=== PATIENT | female | born 1950 | race Caucasian/White ===

== ENCOUNTER 2020-10-12 09:28 | Outpatient (CLI) | payer OTHER, MEDICARE, SELFPAY ==
[2020-10-12 10:25] LABS: Basophils # 0.1 10^3/uL (0.0-0.1); Basophils % 0.9 %; Eosinophils # 0.3 10^3/uL (0.0-0.8); Eosinophils % 5.5 %; Hematocrit 41.1 % (37.0-47.0); Hemoglobin 12.9 g/dL (11.5-15.3); Lymphocytes # 1.2 10^3/uL (0.8-4.8); Lymphocytes % 20.9 %; Mean Corpuscular HGB Conc 31.4 g/dL (30.0-36.0); Mean Corpuscular Hemoglobin 28.4 pg (28.0-34.0); Mean Corpuscular Volume 90.5 fL (81-99); Mean Platelet Volume 11.3 fL (7.4-10.4); Monocytes # 0.5 10^3/uL (0.2-0.9); Monocytes % 8.2 %; Neutrophils # 3.58 10^3/uL (1.8-7.7); Neutrophils % 64.1 %; Nucleated Red Blood Cells % 0 %; Platelet Count 184 10^3/cmm (130-400); Red Blood Count 4.54 10^6/uL (4.1-5.3); Red Cell Distribution Width 14.2 % (12.1-15.1); White Blood Count 5.6 10^3/uL (4.0-10.0)
[2020-10-12 11:04] LABS: Alanine Aminotransferase 9 U/L (0-33); Albumin Level 3.8 g/dL (3.5-5.2); Alkaline Phosphatase 64 IU/L (35-105); Anion Gap 15.5 (5-19); Aspartate Amino Transferase 13 U/L (0-32); Blood Urea Nitrogen 16 mg/dL (8-23); Carbon Dioxide 23 mmol/L (22-29); Chloride 106 mmol/L (98-107); Chol HDL Ratio 3.17 mg/dL (0.0-4.40); Cholesterol 130 mg/dL (0-200); Globulin 2.9 g/dL (1.3-4.6); Glomerular Filtration Rate 99.4 mL/min (90-130); Glucose 187 mg/dL (65-115); HDL Cholesterol 41 mg/dL (60-100); LDL Cholesterol Calculated 46 mg/dL (50-129); Osmolality Calculated 296 mOsm/kg (285-295); Potassium 4.5 mmol/L (3.5-5.1); Sodium 140 mmol/L (136-145); Thyroid Stimulating Hormone 1.52 uIU/mL (0.27-4.20); Total Bilirubin 0.6 mg/dL (0.15-1.2); Total Protein 6.7 g/dL (6.6-8.7); Triglycerides 214 mg/dL (0-150); VLDL Cholestrol Calculation 43 mg/dL (0-30)
[2020-10-12 11:09] LABS: Estmated Average Glucose 146; Hemoglobin A1C 6.7 % (4.0-6.0)
== END 2020-10-12 09:29 | disposition home or self-care (01) ==
PROVIDERS: PCP Family Medicine; Visit Provider Family Medicine
DX: E11.9 Type 2 diabetes mellitus without complications (principal)
CPT/HCPCS: 36415; 80053; 80061; 83036; 84443; 85025

== ENCOUNTER 2021-09-06 09:01 | Outpatient (CLI) | payer OTHER, MEDICARE, SELFPAY ==
[2021-09-06 09:44] LABS: Basophils # 0.1 10^3/uL (0.0-0.1); Eosinophils # 0.4 10^3/uL (0.0-0.8); Eosinophils % 5.6 %; Hematocrit 42.8 % (37.0-47.0); Hemoglobin 13.6 g/dL (11.5-15.3); Lymphocytes # 1.5 10^3/uL (0.8-4.8); Lymphocytes % 23.6 %; Mean Corpuscular HGB Conc 31.8 g/dL (30.0-36.0); Mean Corpuscular Hemoglobin 28.6 pg (28.0-34.0); Mean Corpuscular Volume 90.1 fl (81-99); Mean Platelet Volume 10.9 fL (7.4-10.4); Monocytes # 0.5 10^3/uL (0.2-0.9); Monocytes % 8.6 %; Neutrophils # 3.81 10^3/uL (1.8-7.7); Neutrophils % 60.9 %; Nucleated Red Blood Cells % 0 %; Platelet Count 191 10^3/cmm (130-400); Red Blood Count 4.75 10^6/uL (4.1-5.3); Red Cell Distribution Width 14.3 % (12.1-15.1); White Blood Count 6.3 10^3/uL (4.0-10.0)
[2021-09-06 10:21] LABS: Alanine Aminotransferase 11 U/L (0-33); Albumin Level 4.1 g/dL (3.5-5.2); Alkaline Phosphatase 67 IU/L (35-105); Anion Gap 18.4 (5-19); Aspartate Amino Transferase 16 U/L (0-32); Blood Urea Nitrogen 23 mg/dL (8-23); Calcium 10.6 mg/dL (8.5-10.5); Carbon Dioxide 25 mmol/L (22-29); Chloride 98 mmol/L (98-107); Chol HDL Ratio 3.93 mg/dL (0.0-4.40); Cholesterol 157 mg/dL (0-200); Globulin 3.2 g/dL (1.3-4.6); Glomerular Filtration Rate 71.1 mL/min (90-130); Glucose 190 mg/dL (65-115); HDL Cholesterol 40 mg/dL (60-100); LDL Cholesterol Calculated 71 mg/dL (50-129); LDL HDL Ratio 1.78 RATIO (0.00-3.22); Osmolality Calculated 293 mOsm/kg (285-295); Potassium 4.4 mmol/L (3.5-5.1); Sodium 137 mmol/L (136-145); Total Bilirubin 0.8 mg/dL (0.15-1.2); Total Protein 7.3 g/dL (6.6-8.7); Triglycerides 231 mg/dL (0-150)
[2021-09-06 10:29] LABS: Estmated Average Glucose 148; Hemoglobin A1C 6.8 % (4.0-6.0)
== END 2021-09-06 09:02 | disposition home or self-care (01) ==
PROVIDERS: PCP Family Medicine; Visit Provider Family Medicine
DX: I48.91 Unspecified atrial fibrillation (principal); I11.0 Hypertensive heart disease with heart failure; I50.9 Heart failure, unspecified; E78.00 Pure hypercholesterolemia, unspecified; E11.9 Type 2 diabetes mellitus without complications; N95.0 Postmenopausal bleeding; D64.9 Anemia, unspecified
CPT/HCPCS: 80053; 80061; 83036; 84443; 85025

== ENCOUNTER 2022-04-30 18:06 | Emergency (ER) | payer OTHER, MEDICARE, SELFPAY ==
[2022-04-30 19:27] VITALS: BMI 50.2
[2022-04-30 19:31] VITALS: BP 158/104; PULSE 90; RESP 17; TEMP 36.3; O2SAT 99
--- NOTE | 2022-05-01 00:18 | W.ED.SKABFB ---
HPI - Skin/Abscess/Foreign Bdy General: Chief complaint: Fever Stated complaint: fever Time Seen by Provider: 05/01/22 00:02 History of Present Illness: Patient is a 72-year-old female comes to the ED with rash. Patient has skin rash in the areas of her fat folds of her abdomen the past month. She saw her PCP on Monday and was diagnosed with a yeast infection and has been putting nystatin cream all over rash. She has noticed some improvements but says the rash seems like it spreading. She says the rash gives her no symptoms. Rash is not painful or pruritic. She denies any other symptoms with her rash. Associated symptoms: Deny chills, fever(s), nausea or vomiting Review of Systems Const: Denies: fever(s), chills or fatigue Eyes: Denies: change in vision or eye discomfort ENMT: Denies: throat pain, odynophagia, nasal discharge or nasal congestion Card: Denies: chest pain, palpitations, edema, swelling of feet/ankles, dyspnea on exertion or orthopnea Resp: Denies: dyspnea, productive cough or non-productive cough GI: Denies: abdominal pain, nausea, vomiting, diarrhea, constipation or hematochezia : Denies: flank pain, dysuria or hematuria Musc: Denies: neck pain, back pain or extremity swelling Skin/Breast: Reports: rash; Denies: new lesions Neuro: Denies: headache(s), numbness in extremities or weakness in extremities [facility] ED PFSH: Medical History Anticoagulant long-term use Atrial fibrillation CHF (congestive heart failure) Diabetes DVT (deep venous thrombosis) Dyslipidemia Gout High risk medication use HTN (hypertension) Obesity MP (obstructive sleep apnea) Pulmonary emboli Family History Father Stroke Lung disease Mother Diabetes Hypertension Cancer Lung disease Denies family history of CAD (coronary artery disease) Clotting disorder Dementia Chronic kidney disease (CKD) Suicide Anesthesia complication Bleeding disorder Social History Smoking and tobacco status: never smoked Alcohol intake: never Physical Exam Const: COMMON NORMALS: no acute distress, patient oriented x3 and alert GENERAL APPEARANCE: cooperative HENMT: COMMON NORMALS: normocephalic HEAD & SCALP: normocephalic MOUTH: Normal oral and palatal mucosa present THROAT: posterior oropharynx normal and uvula midline Neck/C-Spine: COMMON NORMALS: supple GENERAL: Yes normal visual inspection Resp: COMMON NORMALS: normal respiratory effort, No retractions, No use of accessory muscles and clear to auscultation bilaterally AUSCULTATION: clear to auscultation bilaterally Cardio: COMMON NORMALS: regular rate, regular rhythm, S1 normal heart sound present, S2 normal heart sound present, No gallops present (Cardio), No clicks present (Cardio), No murmurs present (Cardio) and Peripheral pulses 2+ throughout RATE: regular rate RHYTHM: regular rhythm HEART SOUNDS: S1 normal heart sound present and S2 normal heart sound present PERIPHERAL PULSES: Peripheral pulses 2+ throughout GI: COMMON NORMALS: Normal to inspection, nondistended, normoactive bowel sounds present, Soft to palpation, non-tender and no masses INSPECTION: Yes central obesity PALPATION: Yes Soft to palpation : COMMON NORMALS: Yes no CVA tenderness BLADDER/KIDNEY EXAM: Yes no CVA tenderness Back/Pelvis: COMMON NORMALS: no CVA tenderness Neuro: COMMON NORMALS: patient oriented x3 SENSORIUM/ORIENTATION: Yes alert GAIT: Yes Normal gait present Skin: NARRATIVE SKIN EXAM: Patient has yeast infection rash in abdominal folds of skin. GENERAL SKIN EXAM: dry skin Course Vital Signs: Vital signs: Vital Signs Temperature 98.0 F 05/01/22 00:32 Pulse Rate 90 04/30/22 19:31 Respiratory Rate 18 05/01/22 00:32 Blood Pressure 158/104 04/30/22 19:31 Pulse Oximetry 97 05/01/22 00:32 MDM - Skin/Abscess/Foreign Bdy Medicial Decision Making Patient is a 72-year-old female that comes to the ED with a rash on her abdominal fold area. It is not itchy or painful. She denies any other symptoms with it. Patient appears in no acute distress or pain. Exam shows yeast infection type rash in fat folds of the abdomen. She was discharged home with a prescription for some nystatin cream. She also has another rash on her abdomen and I am sending her with a prescription for some triamcinolone to try without rash. Follow-up with PCP in 7 to 10 days for reevaluation. Patient understood and agreed with plan. Discharge Plan Discharge Patient Disposition: Home Clinical Impression: Rash Condition: Stable Prescriptions: New nystatin 100,000 unit/gram cream 1 applic topical BID PRN (Reason: rash) Qty: 30 0RF triamcinolone acetonide 0.1 % cream 1 applic topical BID PRN (Reason: rash) Qty: 30 0RF No Action ferrous sulfate [FeroSul] 325 mg (65 mg iron) tablet 325 mg PO DAILY Complete Multivitamin Tablet 1 tab PO DAILY calcium carbonate [Calcium 500] 500 mg calcium (1,250 mg) tablet 500 mg PO DAILY glimepiride 2 mg tablet 2 mg PO BID metformin 1,000 mg tablet 1,000 mg PO BID progesterone micronized 200 mg capsule 200 mg PO DAILY Ozempic 0.25 mg or 0.5 mg(2 mg/1.5 mL) pen injector 0.5 mg SUBCUT Q7D magnesium oxide 400 mg (241.3 mg magnesium) tablet 400 mg PO DAILY olmesartan 40 mg tablet 40 mg PO DAILY Qty: 90 3RF sotalol 80 mg tablet 80 mg PO BID Qty: 180 3RF furosemide 40 mg tablet 40 mg PO DAILY Qty: 100 3RF metoprolol succinate 50 mg tablet extended release 24 hr 75 mg PO DAILY Qty: 135 3RF allopurinol 100 mg tablet 100 mg PO DAILY Qty: 100 3RF Xarelto 20 mg tablet 20 mg PO DAILY Qty: 100 3RF simvastatin 20 mg tablet 20 mg PO DAILY Qty: 100 3RF omega-3 fatty acids [Fish Oil Concentrate] 1,000 mg capsule 1,000 mg PO DAILY Qty: 100 3RF potassium chloride [Klor-Con 10] 10 mEq tablet extended release 20 meq PO BID Qty: 360 3RF Discharge Orders: Discharge ED (Routine); Ordered 05/01/22 Ordered By: Michael Stevens Referrals: Hina Roth MD [Primary Care Provider] - Discharge Diet: Regular Discharge Activity: Increase activity as tolerated Activity Restrictions/Additional Instructions: Follow-up with medical provider as directed in the next 7 to 10 days for reevaluation. Talk to your doctor about possibly being referred to house servant for further evaluation of rash. Take medications as prescribed. Return to the ER or your medical provider if condition worsens. Please read and understand discharge instructions. Thank you for choosing [facility] for your healthcare needs today. Please realize this is an emergency room and that we are providing you with a medical screening exam and this may not be complete and all inclusive of all the testing and or work up that you may need to determine your ailment or severity of your illness. It is very important that you follow up as instructed or that you return to the Emergency Department should you have concerns or if your condition changes or worsens in any way. Coding Level of Care Code ED Hair Machine Operator for Mary Fisher
[2022-05-01 00:32] VITALS: RESP 18; TEMP 36.7; O2SAT 97
== END 2022-05-01 00:32 | disposition home or self-care (01) ==
PROVIDERS: Emergency Provider Physician Assistant; PCP Family Medicine
DX: R21 Rash and other nonspecific skin eruption (principal)
CPT/HCPCS: 99283

== ENCOUNTER 2022-12-19 08:22 | Outpatient (CLI) | payer OTHER, MEDICARE, SELFPAY ==
--- NOTE | 2022-12-19 08:45 | USCV_ITS ---
Jesus, Judy Age: 72 Gender: F : 1950 Exam Date: 12/19/2022 09:10 Ordering Phys: Cindy Amador MD ([email or web address]) Technologist: Brad Cabrera [place] [facility] [place]: AFIB BP: 126 / 90 HR: 80 Rhythm: Sinus Technical Quality: Adequate MEASUREMENTS (Male / Female) Normal Values 2D ECHO LVOT Diameter 2.0 cm LV Ejection Fraction MOD 2C 68.9 % LV Ejection Fraction 2C AL 68.7 % LA Diameter 4.4 cm LA Width 4.1 cm LA Height 5.5 cm RA Width 4.0 cm RA Height 6.3 cm Aorta at Sinotubular Diameter 2.2 cm IVC Diameter 2.1 cm M-MODE Aortic Annulus Diameter 3.0 cm LA Ao Ratio MM 1.5 MV E Point Septal Separation 0.9 cm DOPPLER AV Peak Velocity 163.3 cm/s LVOT Peak Velocity 102.0 cm/s AV Area Cont Eq vti 1.8 cm squared AV Area Cont Eq pk 2.0 cm squared MV Peak Velocity 168.0 cm/s MV Area PHT 5.8 cm squared Mitral E to A Ratio 1.7 MV E' Velocity 59.0 cm/s Mitral E to MV E' Ratio 10.8 Mitral E to LV E' Lateral Ratio 11.1 Mitral E to LV E' Septal Ratio 10.5 TR Peak Velocity 397.3 cm/s TR Peak Gradient 63.1 mmHg TR Mean Velocity 318.7 cm/s TR Mean Gradient 42.1 mmHg TR Velocity Time Integral 117.0 cm Right Atrial Pressure 3.0 mmHg Pulmonary Artery Systolic Pressu 66.1 mmHg PV Peak Velocity 114.0 cm/s RV Acceleration Time 0.1 s RV Ejection Time 0.3 s RV AcT/ET 0.4 FINDINGS Left Ventricle Normal left ventricular size and systolic function, EF 68 %. No regional wall motion abnormalities. Right Ventricle The right ventricle is normal in size and function. Right Atrium Mildly increased right atrial size. Left Atrium Mildly increased left atrial size. Mitral Valve Thickened mitral valve. Mild mitral annular calcification. Trace to mild mitral valve regurgitation. Aortic Valve Thickened aortic valve. Tricuspid Valve Trace to mild tricuspid valve regurgitation. Estimated pulmonary artery peak systolic pressure of 75 mmHg with a mean pressure of 46 mmHg. Because of the poor Doppler signals, the PA pressure estimation could be misleading Pulmonic Valve Mild pulmonary valve regurgitation. Pericardium No pericardial effusion. Aorta Normal ascending aorta dimension. IVC Normal inferior vena cava. CONCLUSIONS Normal left ventricular size and systolic function, EF 68 %. No regional wall motion abnormalities. Mild biatrial enlargement Thickened mitral valve. Mild mitral annular calcification. Trace to mild mitral valve regurgitation. Thickened aortic valve. Trace to mild tricuspid valve regurgitation. Mild pulmonary valve regurgitation. Estimated pulmonary artery peak systolic pressure 75 mmHg with a mean pressure of 46 mm Hg-suggesting severe pulmonary hypertension. There is no pericardial effusion. There are no intracardiac masses. Compared to the previous study from 11/10/2014, the pulmonary hypertension appeared to be new. However because of technical difficulties the PA pressure estimation could be misleading. Dr Ravindra Alvarez MD [facility] (Electronically Signed) Final Date: 20 December 2022 09:30 S
== END 2022-12-19 08:23 | disposition home or self-care (01) ==
LOC: RAD 08:28
PROVIDERS: PCP Family Medicine; Visit Provider Specialist
DX: I48.91 Unspecified atrial fibrillation (principal); I11.0 Hypertensive heart disease with heart failure; I50.9 Heart failure, unspecified; I05.9 Rheumatic mitral valve disease, unspecified; I07.1 Rheumatic tricuspid insufficiency; I37.1 Nonrheumatic pulmonary valve insufficiency; I35.8 Other nonrheumatic aortic valve disorders
CPT/HCPCS: 93306

== ENCOUNTER → 2023-05-29 11:05 | Outpatient (BNVA) | payer OTHER, MEDICARE, SELFPAY | PROVIDERS: PCP Family Medicine; Visit Provider Internal Medicine Cardiovascular Disease | DX: R07.9 Chest pain, unspecified (principal) | CPT/HCPCS: 93005 ==

== ENCOUNTER 2023-07-11 09:29 | Outpatient (CLI) | payer OTHER, MEDICARE, SELFPAY ==
--- NOTE | 2023-07-11 10:00 | USCV_ITS ---
Minerva Lee Age: 73 Gender: F : 1950 Exam Date: 07/11/2023 10:16 Ordering Phys: Ravindra Alvarez MD ([email or web address]) Technologist: Exam Location: [facility] – [place] Indication: tr ? rt atrial pressure BP: 130 / 80 HR: 116 Rhythm: Sinus Technical Quality: Adequate MEASUREMENTS (Male / Female) Normal Values 2D ECHO LV Diastolic Diameter PLAX 5.0 cm 4.2 - 5.9 / 3.9 - 5.3 cm LV Systolic Diameter PLAX 3.7 cm IVS Diastolic Thickness 1.3 cm 0.6 - 1.0 / 0.6 - 0.9 cm IVS Systolic Thickness 2.0 cm LVPW Diastolic Thickness 1.2 cm 0.6 - 1.0 / 0.6 - 0.9 cm LVPW Systolic Thickness 1.6 cm LVOT Diameter 2.1 cm LV Ejection Fraction 2D Teich 52.8 % LV Ejection Fraction MOD 2C 46.2 % LV Ejection Fraction 2C AL 45.2 % LA Diameter 4.4 cm M-MODE Aortic Annulus Diameter 3.3 cm LA Ao Ratio MM 1.5 MV E Point Septal Separation 0.7 cm DOPPLER TR Peak Velocity 242.3 cm/s TR Peak Gradient 23.5 mmHg TV Peak E Velocity 79.0 cm/s Right Atrial Pressure 3.0 mmHg Pulmonary Artery Systolic Pressu 26.5 mmHg RV Acceleration Time 0.1 s FINDINGS Left Ventricle Mild diffuse hypokinesia of the septum and the inferior wall segments. Normal LV size with an ejection fraction of 46% Right Ventricle Possibly of normal size ejection fraction Right Atrium Possibly of normal size. Left Atrium Mildly increased left atrial size. Mitral Valve Mild mitral annular calcification. Aortic Valve Minimally thickened aortic valve Tricuspid Valve Trace tricuspid valve regurgitation. Pulmonic Valve Pulmonic valve not well visualized. Pericardium No pericardial effusion. Aorta Normal aortic annulus size. IVC Inferior vena cava not visualized. CONCLUSIONS Normal LV size with a diminished ejection fraction of 46%. Wall motion abnormalities as mentioned above. Mildly increased left atrial size. Mild mitral annular calcification. Minimally thickened aortic valve. Trace tricuspid valve regurgitation. The PA pressure, possibly within normal limits-difficult evaluate because of poor Doppler signal There is no pericardial effusion. There are no intracardiac masses. Compared to the study from 12/19/2022 the drop in the LV ejection fraction appears to be new. The because of atrial fibrillation with rapid ventricular rate, do the study, the segmental wall motion analysis and ejection fraction estimation could be misleading Dr Ravindra Alvarez MD [facility] (Electronically Signed) Final Date: 30 July 2023 20:44 S
== END 2023-07-11 09:30 | disposition home or self-care (01) ==
LOC: RAD 09:29
PROVIDERS: PCP Family Medicine; Visit Provider Internal Medicine Cardiovascular Disease
DX: I42.9 Cardiomyopathy, unspecified (principal); I27.20 Pulmonary hypertension, unspecified; I08.0 Rheumatic disorders of both mitral and aortic valves; I48.91 Unspecified atrial fibrillation
CPT/HCPCS: 93308

== ENCOUNTER 2023-09-20 10:00 | Outpatient (CLI) | payer OTHER, MEDICARE, SELFPAY | END 2023-09-20 10:01 | disposition home or self-care (01) | LOC: SLEEP 09-21 13:01 | PROVIDERS: PCP Family Medicine; Visit Provider Internal Medicine Pulmonary Disease | DX: G47.33 Obstructive sleep apnea (adult) (pediatric) (principal) | CPT/HCPCS: 94762 ==

== ENCOUNTER → 2024-12-25 12:41 | Outpatient (BNVA) | payer OTHER, MEDICARE, SELFPAY | PROVIDERS: PCP Family Medicine; Visit Provider Internal Medicine Cardiovascular Disease | DX: R07.9 Chest pain, unspecified (principal); I48.91 Unspecified atrial fibrillation; R94.31 Abnormal electrocardiogram [ECG] [EKG] | CPT/HCPCS: 93005 ==

== ENCOUNTER 2025-02-11 09:01 | Outpatient (CLI) | payer OTHER, MEDICARE, SELFPAY ==
--- NOTE | 2025-02-11 09:15 | USCV_ITS ---
Jesus Minerva Age: 74 Gender: F : 1950 Exam Date: 02/11/2025 09:16 Ordering Phys: Ravindra Alvarez MD ([email or web address]) Technologist: LB Exam Location: [facility] Indication: Cardiomyopathy BP: 164 / 106 HR: 87 Rhythm: Sinus Technical Quality: Adequate MEASUREMENTS (Male / Female) Normal Values 2D ECHO LV Diastolic Diameter PLAX 5.5 cm 4.2 - 5.9 / 3.9 - 5.3 cm IVS Diastolic Thickness 1.1 cm 0.6 - 1.0 / 0.6 - 0.9 cm IVS Systolic Thickness 1.8 cm LVPW Diastolic Thickness 1.8 cm 0.6 - 1.0 / 0.6 - 0.9 cm LVPW Systolic Thickness 2.4 cm LVOT Diameter 1.9 cm LV Ejection Fraction 2D Teich 49.4 % LV Ejection Fraction MOD 4C 55.9 % LV Ejection Fraction MOD 2C 42.4 % LV Ejection Fraction 2C AL 46.5 % LA Diameter 4.1 cm RA Systolic Volume 4C AL 94.9 ml RA Systolic Volume 4C MOD 92.4 ml LA Sys Volume AL 134.7 cm cubed LA Sys Volume Index AL 43.4 cm cubed/m squared M-MODE LA Ao Ratio MM 1.7 AV Cusp Separation MM 1.6 cm DOPPLER AV Peak Velocity 134.0 cm/s LVOT Peak Velocity 104.0 cm/s AV Area Cont Eq vti 2.8 cm squared AV Area Cont Eq pk 2.3 cm squared MV Peak Velocity 107.0 cm/s MV Area PHT 5.6 cm squared Mitral E to A Ratio 2.2 TR Peak Velocity 184.0 cm/s TR Peak Gradient 13.5 mmHg TV Peak E Velocity 82.0 cm/s PV Peak Velocity 84.0 cm/s FINDINGS Left Ventricle Diffuse hypokinesis of the septum and the anteroseptal segments. LV ejection fraction around 45 to 50% visual.mildly increased left ventricular cavity size. Right Ventricle Normal right ventricular size and systolic function. Right Atrium Moderately increased right atrial size. Left Atrium Severely increased left atrial volume 43 ml/m squared. Mitral Valve No gross abnormalities noted. Aortic Valve Thickened aortic valve. Tricuspid Valve No gross abnormalities noted Pulmonic Valve Pulmonic valve not well visualized. Pericardium No significant pericardial effusion Aorta Normal aortic annulus size. IVC Inferior vena cava not visualized. CONCLUSIONS Diffuse hypokinesis of the septum and the anteroseptal segments. LV ejection fraction around 45 to 50% visual.mildly increased left ventricular cavity size. Moderately increased right atrial size. Severely increased left atrial volume 43 ml/m squared. Thickened aortic valve. There is no pericardial effusion. There are no intracardiac masses. Compared to the study from 07/11/2023, there may not be a significant change Dr Ravindra Alvarez MD [facility] (Electronically Signed) Final Date: 14 February 2025 17:15 S
== END 2025-02-11 09:02 | disposition home or self-care (01) ==
LOC: RAD 09:03
PROVIDERS: PCP Family Medicine; Visit Provider Internal Medicine Cardiovascular Disease
DX: R06.09 Other forms of dyspnea (principal); I51.89 Other ill-defined heart diseases; R93.1 Abnormal findings on diagnostic imaging of heart and coronary circulation; I51.7 Cardiomegaly; I35.8 Other nonrheumatic aortic valve disorders
CPT/HCPCS: 93306